=== PATIENT | male | born 1980 | race African-American/Black ===

== ENCOUNTER 2019-09-29 12:21 | Emergency (ER) | payer SELFPAY ==
[~2019-09-29] VITALS: Ht 175.3 cm; Wt 67.9 kg
[2019-09-29 12:26] VITALS: BP 122/58
--- NOTE | 2019-09-29 12:56 | PHYS DOC ---
Past Medical History Past Medical History: Diabetes-Type II, Other Additional Past Medical Histor: CHRONIC L HAND/KNEE PAIN Past Surgical History: No Surgical History Smoking Status: Current Every Day Smoker Additional Information: 0.25 PPD Alcohol Use: Occasionally General Adult EDM: Chief Complaint: MULTIPLE COMPLAINTS HPI: HPI: Patient is a 39 year old male with history of diabetes mellitus who presents with planing of left pinky finger pain and knee pain and tooth pain. Patient complaining of several area of pain for 1 year without new change. Patient denies fever and chills, shortness of breath, dysphagia. Review of Systems: Review of Systems: Constitutional: Denies fever or chills. [] Eyes: Denies change in visual acuity. [] HENT: Denies nasal congestion or sore throat. [] Respiratory: Denies cough or shortness of breath. [] Cardiovascular: Denies chest pain or edema. [] GI: Denies abdominal pain, nausea, vomiting, bloody stools or diarrhea. [] : Denies dysuria. [] Musculoskeletal: Denies back pain, report joint pain. [] Integument: Denies rash. [] Neurologic: Denies headache, focal weakness or sensory changes. [] Endocrine: Denies polyuria or polydipsia. [] Lymphatic: Denies swollen glands. [] Psychiatric: Denies depression or anxiety. [] Heart Score: Risk Factors: Risk Factors: DM, Current or recent (<one month) smoker, HTN, HLP, family history of CAD, obesity. Risk Scores: Score 0 - 3: 2.5% MACE over next 6 weeks - Discharge Home Score 4 - 6: 20.3% MACE over next 6 weeks - Admit for Clinical Observation Score 7 - 10: 72.7% MACE over next 6 weeks - Early Invasive Strategies Allergies: Allergies: Allergies Coded Allergies Type Severity Reaction Last Updated Verified No Known Drug Allergies 09/29/19 No Physical Exam: PE: Constitutional: Well nourished, no acute distress, poor hygiene, non-toxic appearance. [] HENT: Normocephalic, atraumatic, bilateral external ears normal, oropharynx moist, poor dental hygiene with several missing teeth with no sign of abscess. Eyes: PERRLA, EOMI, conjunctiva normal, no discharge. [] Neck: Normal range of motion, no tenderness, supple, no stridor. [] Cardiovascular:Heart rate regular rhythm, no murmur [] Lungs & Thorax: Bilateral breath sounds clear to auscultation [] Extremities: No tenderness, no cyanosis, no clubbing, ROM intact, no edema. [] Neurologic: Alert and oriented X 3, normal motor function, normal sensory function, no focal deficits noted. [] Psychologic: Affect normal, judgement normal, mood normal. [] Current Patient Data: Vital Signs: Vital Signs Date Time Temp Pulse Resp B/P (MAP) Pulse Ox O2 Delivery O2 Flow Rate FiO2 09/29/19 12:26 98.5 99 16 122/58 (79) 97 Room Air 98.5 EKG: EKG: [] Radiology/Procedures: Radiology/Procedures: [] Course & Med Decision Making: Course & Med Decision Making Evaluation of patient ER showed 39-year-old male patient presented to ER with complaining of multiple problem including left pinky finger pain and left knee pain and dental pain for more than 1 year. Patient has a stable vital sign and exam. Patient decided to leave AMA because of financial problem. Rogelio Disclaimer: Dragraphael Disclaimer: This electronic medical record was generated, in whole or in part, using a voice recognition dictation system. Departure Departure Impression: Primary Impression: Encounter for medical screening examination Disposition: AGAINST MEDICAL ADVICE Condition: STABLE Referrals: NO PCP (PCP) CAMMIE GUO MD Sep 29, 2019 12:56
== END 2019-09-29 13:00 | disposition left against medical advice (07) ==
LOC: ER 12:21
DX: M79.645 Pain in left finger(s) (principal); M25.562 Pain in left knee; G89.29 Other chronic pain; K08.89 Other specified disorders of teeth and supporting structures; E11.9 Type 2 diabetes mellitus without complications; F17.200 Nicotine dependence, unspecified, uncomplicated
CPT/HCPCS: 99281